=== PATIENT | male | born 1995 | race Caucasian/White ===

== ENCOUNTER 2024-10-19 08:30 | Emergency (ER) | payer OTHER, SELFPAY ==
[2024-10-19 09:10] VITALS: BP 147/83; PULSE 93; RESP 16; TEMP 37.7; O2SAT 99
--- NOTE | 2024-10-19 09:43 | ED_ITS ---
HPI - General Adult General Chief complaint: Upper Respiratory Infection Stated complaint: COLD SYMPTOMS/ASTHMA Time Seen by Provider: 10/19/24 09:43 Source: patient Mode of arrival: ambulatory Limitations: no limitations History of Present Illness HPI narrative: 29-year-old male patient presents to [facility] with complaints of Flu-like symptoms that started about 5 days ago. Patient states that he has 5 girls in his household all with similar symptoms and was told it was a viral infection. Patient states he did have asthma as a child was told couple months ago that he grew out of it but he is concerned that he might have issues and does not have an inhaler at home requesting an inhaler. Related Data Home Medications ?Medication ?Instructions ?Recorded ?Confirmed ?Last Taken ?Type fluticasone propionate 110 1 puff inhalation Q12H 05/27/20 09/28/20 Unknown History mcg/actuation HFA aerosol inhaler (Flovent HFA) Allergies Allergy/AdvReac Type Severity Reaction Status Date / Time No Known Allergies Allergy Unknown Verified 09/28/20 15:44 Review of Systems Review of Systems: CONSTITUTIONAL: Positive fever, chills, or sweats. EYES: Denies visual changes, redness, or discharge. ENT: positive rhinorrhea, congestion, denies sore throat, or otalgia. CARDIOVASCULAR: Denies chest pain, palpitations, or edema. RESPIRATORY: positive cough or dyspnea. GASTROINTESTINAL: Denies abdominal pain, nausea, vomiting, or diarrhea. GENITOURINARY: Denies dysuria or hematuria. SKIN: Denies rash or itching. MUSCULOSKELETAL: Denies back pain, joint pain, or myalgia. NEUROLOGIC: positive headache, denies numbness, or weakness. PSYCHIATRIC: Denies anxiety or depression. PMFSH Past Medical History Medical History COVID-19 Dermatophytosis of body Social History Social History Second hand tobacco smoke exposure: No Alcohol intake: never Comments At the time of my signature I agree with nursing past medical history, surgical, social, and family history. There is no relevant family history pertinent to the presenting complaint. Exam Narrative: GENERAL: ill-appearing, well-nourished, and in no acute distress. HEAD: Normocephalic, atraumatic. EYES: PERRLA and EOMI. ENT: Nares with erythema edema noted bilaterally, no rhinorrhea or epistaxis. Mucous membranes moist. NECK: Supple. No lymphadenopathy CHEST: Clear to auscultation. No respiratory distress. HEART: Regular rate and rhythm. No murmur heard. Normal peripheral pulses. ABDOMEN: Soft, nontender, nondistended, normal active bowel sounds. EXTREMITIES: Normal range of motion. No edema. SKIN: Warm, dry, no rash. NEURO: No focal deficits. Alert and oriented x3. Course Course Level of Care: Express Care Visit Vital Signs Vital signs: Vital Signs Temperature 37.7 C H 10/19/24 09:10 Pulse Rate 93 10/19/24 09:10 Respiratory Rate 16 10/19/24 09:10 Blood Pressure 147/83 H 10/19/24 09:10 Pulse Oximetry 99 10/19/24 09:10 Temperature 37.7 C H 10/19/24 09:10 Pulse Rate 93 10/19/24 09:10 Respiratory Rate 16 10/19/24 09:10 Blood Pressure 147/83 H 10/19/24 09:10 Pulse Oximetry 99 10/19/24 09:10 Vital signs are reviewed. The patient has been informed that they may have pre-hypertension or Hypertension based on a BP reading in the department. I recommend that the patient call the primary care provider listed on their discharge instructions or a physician of their choice this week to arrange follow up for further evaluation of possible pre-hypertension or Hypertension Medical Decision Making MDM Narrative Medical decision making narrative: notified patient he is positive today for influenza A. Discussed with him that he is not eligible for the Tamiflu since it has been 5 days since the symptoms started. Discussed with patient to continue Tylenol, Motrin, increase his fluids and loss of rest. Discussed with patient I will provide him an inhaler today but his lungs are clear and I do not hear any wheezing or concerns for lung infection. Patient verbalized understanding denies any other questions or concerns at this time. Differential Diagnosis Differential Diagnosis: Differential diagnosis: Allergic rhinitis, chronic sinusitis, tonsillitis, acute sinusitis, infectious mononucleosis, seasonal influenza, pertussis, diphtheria, meningococcal disease, viral syndrome, viral bronchitis, RSV, COVID- 19 Vital Signs Vital Signs: Vital Signs Temperature 37.7 C H 10/19/24 09:10 Pulse Rate 93 10/19/24 09:10 Respiratory Rate 16 10/19/24 09:10 Blood Pressure 147/83 H 10/19/24 09:10 Pulse Oximetry 99 10/19/24 09:10 Temperature 37.7 C H 10/19/24 09:10 Pulse Rate 93 10/19/24 09:10 Respiratory Rate 16 10/19/24 09:10 Blood Pressure 147/83 H 10/19/24 09:10 Pulse Oximetry 99 10/19/24 09:10 Critical Care Time Critical Care Time Critical Care Time: No Discharge Plan Discharge Clinical Impression: Influenza A Patient Disposition: Home, Self-Care Condition: Stable Instructions: Antibiotic Form, Influenza (ED) Additional Instructions: Influenza (the flu) is an infection caused by the influenza virus. The flu is easily spread when an infected person coughs, sneezes, or has close contact with others. You may be able to spread the flu to others for 1 week or longer after signs or symptoms appear. DISCHARGE INSTRUCTIONS: Call your local emergency number (911 in the [place]) if: You have trouble breathing, and your lips look purple or blue. You have a seizure. Call your doctor if: You are dizzy, or you are urinating less or not at all. You have a headache with a stiff neck, and you feel tired or confused. You have new pain or pressure in your chest. Your symptoms, such as shortness of breath, vomiting, or diarrhea, get worse. Your symptoms, such as fever and coughing, seem to get better, but then get worse. You have new muscle pain or weakness. You have questions or concerns about your condition or care. Medicines: You may need any of the following: Acetaminophen decreases pain and fever. It is available without a doctor's order. Ask how much to take and how often to take it. Follow directions. Read the labels of all other medicines you are using to see if they also contain acetaminophen, or ask your doctor or pharmacist. Acetaminophen can cause liver damage if not taken correctly. Do not use more than 4 grams (4,000 milligrams) total of acetaminophen in one day. NSAIDs , such as ibuprofen, help decrease swelling, pain, and fever. This m edicine is available with or without a doctor's order. NSAIDs can cause stomach bleeding or kidney problems in certain people. If you take blood thinner medicine, always ask your healthcare provider if NSAIDs are safe for you. Always read the medicine label and follow directions. Rest as much as you can to help you recover. Patient Language: Mongolian Prescriptions: New albuterol sulfate [Ventolin HFA] 90 mcg/actuation HFA aerosol inhaler 2 puff INHALATION .Q4 hours PRN (Reason: cough) Qty: 18 0RF No Action Flovent HFA 110 mcg/actuation HFA aerosol inhaler 1 puff INHALATION Q12H griseofulvin ultramicrosize 125 mg tablet 125 mg PO BID 30 Days Qty: 60 1RF Rx Instructions: must administer with high-fat meal or food clotrimazole-betamethasone 1-0.05 % lotion 1 applic TOPICAL BID 30 Days Qty: 30 3RF fluticasone propionate [Flonase Allergy Relief] 50 mcg/actuation spray,suspension 2 spray NASAL DAILY Qty: 9.9 0RF Rx Instructions: administer into each nostril Follow-up/Referrals: Brent,Gage Xiong MD [Primary Care Provider] - Stand Alone Forms: Work/School Release IP Time of Disposition: 09:50
[2024-10-19 09:55] LABS: EDCOVIDSCREEN Negative (Negative); EDINFLUASCREEN Positive (Negative); EDINFLUBSCREEN Negative (Negative)
== END 2024-10-19 10:04 | disposition home or self-care (01) ==
PROVIDERS: Emergency Provider Nurse Practitioner Family; PCP Family Medicine
DX: J10.1 Influenza due to other identified influenza virus with other respiratory manifestations (principal); Z20.822 Contact with and (suspected) exposure to COVID-19
CPT/HCPCS: 87426; 87804; 99213; G0463